=== PATIENT | female | born 1940 | race Caucasian/White ===

== ENCOUNTER 2022-02-14 10:33 | Emergency (ER) | payer OTHER ==
[~2022-02-14] VITALS: Ht 152.4 cm; Wt 68.0 kg
[2022-02-14] MEDS ORDERED: KETOROLAC 30MG/ML VIAL IV STA (11:04)
[2022-02-14 11:25] LABS: BASOPHILS % 0.2 % (0.0-2.0); EOSINOPHILS % 0.3 % (0.0-5.0); HEMATOCRIT. 38.2 % (36.0-48.0); HEMOGLOBIN. 12.7 g/dL (12.0-16.0); LYMPHOCYTES % 9.3 % (20.0-50.0); MEAN CORPUSCULAR HEMOGLOBIN 31.1 pg (28.0-32.0); MEAN CORPUSCULAR VOLUME 93.4 fL (81.0-99.0); MEAN PLATELET VOLUME 9.5 fl (7.4-10.4); MONOCYTES % 5.4 % (2.0-8.0); NEUTROPHILS % 84.8 % (40.0-76.0); PLATELET 140 x1000/uL (130-400); RED BLOOD CELL COUNT 4.09 mill/uL (4.2-5.4); RED CELL DISTRIBUTION WIDTH 12.8 % (11.6-14.6)
[2022-02-14 11:33] LABS: CHLORIDE 102 mEq/L (98-107)
[2022-02-14 11:39] LABS: PROTHROMBIN TIME 10.9 sec (9.6-11.0)
[2022-02-14] MEDS ORDERED: TOPUD PO (13:00)
[2022-02-14 13:46] LABS: BG BASE EXCESS 1.1 mmol/L (-2.0-2.0); BG CARBOXYHEMOGLOBIN 0.9 % (0.5-1.5); BG DEOXYHEMOGLOBIN 2.8 % (0.0-5.0); BG HCO3 ACT 27.2 mmol/L (22.0-26.0); BG METHEMOGLOBIN 0.2 % (0.0-1.5); BG OXYGEN SATURATION 97.2 % (92.0-98.5); BG OXYHEMOGLOBIN 96.1 % (94.0-97.0); BG PCO2 49.4 mmHg (35.0-45.0); BG PH 7.359 (7.350-7.450); BG PO2 93.9 mmHg (75.0-100.0); BG SAMPLE SITE RIGHT BRACHIAL; BG TOTAL HEMOGLOBIN 13.3 g/dL (12.0-18.0); BG VENT MODE NASAL CANNULA
[2022-02-14 17:01] VITALS: BP 110/71
== END 2022-02-14 17:04 | disposition short-term general hospital (02) ==
LOC: ER 10:33
DX: R09.02 Hypoxemia (principal); S00.212A Abrasion of left eyelid and periocular area, initial encounter; S80.12XA Contusion of left lower leg, initial encounter; R07.89 Other chest pain; I67.82 Cerebral ischemia; I10 Essential (primary) hypertension; M19.90 Unspecified osteoarthritis, unspecified site; Z20.822 Contact with and (suspected) exposure to COVID-19; W18.39XA Other fall on same level, initial encounter; Y93.89 Activity, other specified; Y92.9 Unspecified place or not applicable
CPT/HCPCS: 36415; 36600; 70450; 71045; 71250; 72125; 72170; 73590; 80053; 82375; 82805; 84484; 85025; 85610; 87426; 93005; 96374; 99285; C9803; J1885